=== PATIENT | female | born 1985 | race Caucasian/White ===

== ENCOUNTER 2017-08-28 11:10 | Inpatient (IN) | payer BC ==
[2017-08-28 11:57] LABS: Hematocrit 33 % (35-47); Hemoglobin 11.2 g/dl (12.0-16.0); Mean Corpuscular HGB Conc 34 g/dl (31-36); Mean Corpuscular Hemoglobin 30 pg (27-31); Mean Corpuscular Volume 89 fL (80-97); Mean Platelet Volume 8 um3 (7.4-10.4); Red Blood Count 3.75 10^6/ul (4.0-5.4); Red Cell Distribution Width 14 % (10.5-15)
[2017-08-28] MEDS ORDERED: Oxytocin in LR* 20 UNITS/1,000 ML BAG IVPB SCH (14:00)
[2017-08-29] MEDS ORDERED: fentaNYL* 50 MCG/ML 2 ML VIAL (100 MCG VIAL) ONE (09:37)
[2017-08-29] MEDS ORDERED: OBEPIDURAL* 250 ML ONE (09:37)
[2017-08-29] MEDS ORDERED: Phenylephrine IV* 40 MCG/ML 10 ML SYRINGE IV PUSH PRN ×2 (10:20)
[2017-08-29] MEDS ORDERED: Sodium Citrate/Citric Acid* 15 ML UDC PO PRN (10:20)
[2017-08-29] MEDS ORDERED: Famotidine TAB* 20 MG PO PRN (10:20)
[2017-08-29] MEDS ORDERED: Oxytocin in LR* 20 UNITS/1,000 ML BAG IVPB SCH (11:00)
[2017-08-29] MEDS ORDERED: OBEPIDURAL* 250 ML EPIDURAL SCH (11:00)
[2017-08-29] MEDS ORDERED: ceFOXitin 2 GM IVPREMIX* 2 GM/50 ML BAG ONE (17:52)
[2017-08-29] MEDS ORDERED: Morphine PF AMP (0.5MG/ML)* 5 MG/10 ML AMP ONE (18:25)
[2017-08-29] MEDS ORDERED: OXYTOCIN* 10 UNITS/ML 1 ML VIAL ONE (19:29)
[2017-08-29] MEDS ORDERED: Phenylephrine IV* 40 MCG/ML 10 ML SYRINGE ONE (19:29)
[2017-08-29] MEDS ORDERED: Nalbuphine* 20 MG/ML 1 ML VIAL IV PRN (19:37)
[2017-08-29] MEDS ORDERED: Naloxone* 0.4 MG/ML 1 ML VIAL IV PRN (19:37)
[2017-08-29] MEDS ORDERED: Ondansetron INJ* 2 MG/ML VIAL IV PRN (19:37)
[2017-08-29] MEDS ORDERED: Lidocaine 2% PF * 5 ML VIAL ONE (19:40)
[2017-08-29] MEDS ORDERED: Propofol* 10 MG/ML 20 ML BTL IV PUSH ONE (19:40)
[2017-08-29] MEDS ORDERED: Acetaminophen TAB* 325 MG PO PRN (20:03)
[2017-08-29] MEDS ORDERED: Dibucaine 1% 28.35 GM TUBE PR PRN (20:03)
[2017-08-29] MEDS ORDERED: Glycerin ADULT SUPP PR PRN (20:03)
[2017-08-29] MEDS ORDERED: Witch Hazel PAD* JAR TOPICAL PRN (20:03)
[2017-08-29] MEDS ORDERED: Methylergonovine INJ* 0.2 MG/ML 1ML AMP IM ONE (20:30)
[2017-08-29] MEDS ORDERED: OXYTOCIN* 10 UNITS/ML 1 ML VIAL IM ONE (20:30)
[2017-08-29] MEDS ORDERED: Misoprostol TAB* 200 MCG PR ONE (20:30)
[2017-08-29] MEDS: oxyCODONE/Acetamin 5/325 MG* TAB PO PRN (20:51)
[2017-08-30] MEDS: oxyCODONE/Acetamin 5/325 MG* TAB PO PRN ×5 (01:21→22:10)
[2017-08-30] MEDS: Ibuprofen TAB* 400 MG PO SCH ×3 (01:22→08:12)
[2017-08-30] MEDS: Docusate CAP* 100 MG PO SCH ×4 (06:14→19:56)
[2017-08-30] MEDS: Simethicone TAB* 80 MG TAB.CHEW PO SCH ×5 (06:15→22:10)
[2017-08-30 08:02] LABS: Hematocrit 26 % (35-47); Hemoglobin 8.6 g/dl (12.0-16.0); Mean Corpuscular HGB Conc 34 g/dl (31-36); Mean Corpuscular Hemoglobin 30 pg (27-31); Mean Corpuscular Volume 90 fL (80-97); Mean Platelet Volume 9 um3 (7.4-10.4); Red Blood Count 2.85 10^6/ul (4.0-5.4); Red Cell Distribution Width 14 % (10.5-15); White Blood Count 17.4 10^3/ul (3.5-10.8)
[2017-08-30] MEDS: Ferrous Gluconate TAB* 324 MG TAB PO SCH ×2 (08:10→19:56)
[2017-08-30] MEDS ORDERED: oxyCODONE/Acetamin 5/325 MG* TAB PO PRN (10:45)
[2017-08-30] MEDS ORDERED: Zolpidem TAB* 5 MG PO PRN (10:45)
[2017-08-30] MEDS: Ibuprofen TAB* 600 MG PO PRN ×2 (14:12→19:56)
--- NOTE | 2017-08-30 17:49 | PTEDU ---
Patient Name: DARIELA BARBOSA DARIELA BARBOSA selected video: Never Ever Shake a Baby to view on 08/30/2017 at 5:47:04 PM [id number]
--- NOTE | 2017-08-30 20:44 | PTEDU ---
Patient Name: DARIELA BARBOSA DARIELA BARBOSA selected video: Never Ever Shake a Baby to view on 08/30/2017 at 8:43:08 PM [id number]
[2017-08-31] MEDS: Ibuprofen TAB* 600 MG PO PRN ×4 (02:51→21:59)
[2017-08-31] MEDS: oxyCODONE/Acetamin 5/325 MG* TAB PO PRN ×4 (07:59→21:59)
[2017-08-31] MEDS: Ferrous Gluconate TAB* 324 MG TAB PO SCH ×2 (09:54→21:24)
[2017-08-31] MEDS: Docusate CAP* 100 MG PO SCH ×3 (09:54→21:24)
[2017-08-31] MEDS: Simethicone TAB* 80 MG TAB.CHEW PO SCH ×4 (09:55→23:45)
[2017-09-01] MEDS: oxyCODONE/Acetamin 5/325 MG* TAB PO PRN ×2 (02:58→08:18)
[2017-09-01] MEDS: Ibuprofen TAB* 600 MG PO PRN (06:30)
[2017-09-01] MEDS: Simethicone TAB* 80 MG TAB.CHEW PO SCH (08:18)
[2017-09-01] MEDS: Ferrous Gluconate TAB* 324 MG TAB PO SCH (08:18)
[2017-09-01] MEDS: Docusate CAP* 100 MG PO SCH (08:18)
[2017-09-01 10:01] VITALS: BP 108/54
--- NOTE | 2017-09-02 03:37 | OP ---
CC: Dr. Berkley Larson * DATE OF OPERATION: 08/29/17 - ROOM #[facility]-105 DATE OF : 87 SURGEON: Cisco Gay MD [employer] OPERATOR: Dr. Berkley Larson. ANESTHESIA: Spinal. PRE-OP DIAGNOSES: Intrauterine at 41-weeks, oligohydramnios with an arrest of dilation in labor along with intraoperative uterine atony and hemorrhage. POST-OP DIAGNOSES: Intrauterine at 41-weeks, oligohydramnios with an arrest of dilation in labor along with intraoperative uterine atony and hemorrhage. OPERATIVE PROCEDURE: Primary low-transverse section. ESTIMATED BLOOD LOSS: 1000 cc. SPECIMENS SENT TO PATHOLOGY: Cord blood. IV FLUIDS: She received 1800 cc of crystalloid fluid. URINE OUTPUT: 300 cc of dark blood-tinged urine. FINDINGS: Delivery of a viable female infant over meconium fluid with Apgars of 9 and 9 in left occiput transverse asynclitic presentation. The placenta was grossly intact with a 3-vessel cord noted and the uterus, adnexa, bowel and bladder were within normal limits. DESCRIPTION OF PROCEDURE: The patient was taken to the operating room where she was identified. She was placed on operating table where a spinal anesthetic was obtained without difficulty. She was then placed in the supine position with leftward tilt, prepped and draped in a normal sterile fashion. A Pfannenstiel skin incision was made with a knife and carried through to the underlying layer of fascia. The fascia was then nicked in the midline and extended laterally with curved Schwarz scissors. It was then grasped superiorly and inferiorly with Prasanth clamps and dissected off sharply from the rectus muscle. The rectus muscle was in the midline bluntly. The peritoneum was identified, grasped with pickups, entered sharply with Metzenbaum scissors and extended superiorly and inferiorly bluntly. A bladder blade was inserted into the patient's abdomen, the bladder flap was created using Metzenbaum scissors over which the bladder blade was then reinserted. A low transverse uterine incision was made with the knife, extended laterally with bandage scissors. The infant's head was then grasped and delivered atraumatically. The nose and mouth were suctioned. Cord was clamped and cut and the was handed off to awaiting emissions engineer. Cord bloods were obtained. The placenta was removed manually. The uterus was then exteriorized , cleared of all clot and debris and the uterine incision was then closed using 0 Polysorb suture in a running locked fashion with a second imbricating layer of 0 Polysorb suture. At this point, the uterus was noted to be boggy and atonic. The patient was then given 2.25 mcg of Methergine IM and she was also given 10 units of Pitocin intramuscularly into the uterus itself to help with uterine atony and bleeding. We then proceeded to return the uterus to the patient's abdomen. The gutters were then cleared of all clot and debris using moist laparotomy sponges. The sponge count was correct x1. Instrument count correct x1. I closed the peritoneum using 3-0 Polysorb suture in a running fashion, the fascia was closed using 0 Polysorb suture in a running fashion, and the skin was closed with a 4-0 Monocryl in a subcuticular stitch. After the surgery, I performed a bimanual exam and extruded about 500 cc of blood clots from the lower uterine segment and this allowed the uterus to contract and it became firm and the bleeding subsided. The patient tolerated the procedure well. Sponge, lap, and needle counts were correct x2. She was then transferred to the recovery room area in stable condition. [id number]/[facility] #: [id number]
== END 2017-09-01 11:43 | disposition home or self-care (01) | DRG 540 ==
LOC: MCHOBOUT 11:10 → MCHOB 11:30
PROVIDERS: ADMIT Obstetrics & Gynecology; ATTEND Obstetrics & Gynecology
PROC: 10907ZC Drainage of Amniotic Fluid, Therapeutic from Products of Conception, Via Natural or Artificial Opening (ICD-10-PCS; 2017-08-29)
PROC: 10D00Z1 Extraction of Products of Conception, Low, Open Approach (ICD-10-PCS; principal; 2017-08-29 18:34)
DX: O62.0 Primary inadequate contractions (principal); O41.03X0 Oligohydramnios, third trimester, not applicable or unspecified; O72.1 Other immediate postpartum hemorrhage; O48.0 Post-term pregnancy; O77.0 Labor and delivery complicated by meconium in amniotic fluid; O99.344 Other mental disorders complicating childbirth; D64.9 Anemia, unspecified; O90.81 Anemia of the puerperium; F41.8 Other specified anxiety disorders; Z3A.41 41 weeks gestation of pregnancy; Z37.0 Single live birth
CPT/HCPCS: 36415; 85025; 86850; 86900; 86901; A9270-GY; J0694; J2210; J2300; J2590; J2704; J3010